=== PATIENT | female | born 1980 ===

== ENCOUNTER 2022-06-12 05:37 | Inpatient (IN) ==
[2022-06-07 13:57] LABS: Basophils % 0.2 % (0.0-0.8); Eosinophils # 0.1 10*3/uL (0.0-0.87); Eosinophils % 0.7 % (0.00-10.9); Hematocrit 36.4 VOL% (35.7-47.0); Hemoglobin 11.3 GM/DL (12.0-16.0); Immature Granulocytes % 0.4 %; Immature Granulocytes Absolute 0.03 #; Lymphocytes # 1.8 10*3/uL (1.4-4.0); Lymphocytes % 22.2 % (21.3-54.2); Mean Platelet Volume 11.3 FL (9.6-12.0); Monocytes # 0.4 10*3/uL (0.11-0.8); Monocytes % 4.8 % (1.7-12.7); Neutrophils % 71.7 % (38.7-73.9); Platelet Count 315 T/CUMM (130-400); Red Blood Count 4.09 MC/CUMM (3.8-5.5); Red Cell Distribution Width 13.3 % (9.3-17.3); White Blood Count 8.3 T/CUMM (4-12)
[2022-06-07 14:00] LABS: Mucus,Urine Occasional /LPF (Occasional); Protein,Urine Negative (Negative); RBC,Urine 1 /HPF (0-4); Squamous Epithelial Cell,Urine Occasional /HPF (0-10); Urine Appearance Clear (Clear); Urine Color Yellow (Yellow); Urine Specific Gravity 1.025 (1.001-1.035)
[2022-06-07 14:01] LABS: Bilirubin,Urine 0.2 mg/dL (Negative); Blood, Urine Negative (Negative); Glucose,Urine (UA) Negative (Negative); Ketones,Urine Negative (Negative); Nitrite,Urine Negative (Negative); Urine Urobilinogen 0.2 eU/dL (<2.0)
[2022-06-07 14:19] LABS: Alanine Aminotransferase 24 U/L (13-56); Albumin 3.3 G/DL (3.4-5.0); Alkaline Phosphatase 92 U/L (45-117); Aspartate Amino Transferase 12 U/L (0-37); Bilirubin,Total < 0.39 MG/DL (0.20-1.00); Blood Urea Nitrogen 9 MG/DL (7-18); Calcium 8.7 MG/DL (8.5-10.1); Carbon Dioxide 25 MMOL/L (21-32); Chloride 110 MMOL/L (98-107); Cholesterol 90 MG/DL (50-200); Glucose 125 MG/DL (74-106); HDL Cholesterol 41 MG/DL (40-60); Potassium 4.1 MMOL/L (3.5-5.1); Sodium 143 MMOL/L (136-145); Triglycerides 95 MG/DL (2-150)
[2022-06-07 14:48] LABS: HIV Antigen/Antibody Result Nonreactive (Nonreactive)
[2022-06-12] MEDS ORDERED: AMPICILLIN/SULBACTAM 3,000 MG in SODIUM CHLORIDE 0.9% 100 ML IV ONE (06:00)
[2022-06-12] MEDS: LACTATED RINGERS 1,000 ML IV SCH ×2 (06:13→10:16)
[2022-06-12] MEDS ORDERED: MIDAZOLAM 2 MG/2 ML VIAL ONE (06:46)
[2022-06-12] MEDS ORDERED: fentaNYL 100 MCG/2 ML VIAL ONE ×2 (06:47→08:25)
[2022-06-12] MEDS ORDERED: DIAZEPAM 5 MG TABLET PO ONE (06:49)
[2022-06-12] MEDS ORDERED: GABAPENTIN 400 MG CAPSULE PO ONE (06:49)
[2022-06-12] MEDS ORDERED: FAMOTIDINE 20 MG TABLET PO ONE (06:49)
[2022-06-12] MEDS ORDERED: ACETAMINOPHEN 500 MG TABLET PO ONE (06:49)
[2022-06-12] MEDS ORDERED: propofoL 200 MG/20 ML VIAL IV ONE (08:15)
[2022-06-12] MEDS ORDERED: ONDANSETRON 4 MG/2 ML VIAL ONE (08:15)
[2022-06-12] MEDS ORDERED: ROCURONIUM 50 MG/5 ML VIAL IV ONE (08:15)
[2022-06-12] MEDS ORDERED: LIDOCAINE 2% 5 ML VIAL ONE (08:15)
[2022-06-12] MEDS ORDERED: GLYCOPYRROLATE 0.4 MG/2 ML VIAL ONE (09:22)
[2022-06-12] MEDS ORDERED: DESFLURANE 1 UNIT/15 MINUTE INH ONE (09:22)
[2022-06-12] MEDS ORDERED: NEOSTIGMINE 10 MG/10 ML VIAL ONE (09:23)
[2022-06-12] MEDS ORDERED: ONDANSETRON 4 MG/2 ML VIAL IV PRN ×2 (09:51→11:03)
[2022-06-12] MEDS: HYDROmorphone 1 MG/1 ML SYRINGE IV PRN ×2 (10:00→10:13)
[2022-06-12] MEDS ORDERED: BENZOCAINE/MENTHOL LOZENGE 18/BOX PO PRN (11:03)
[2022-06-12] MEDS ORDERED: HYDROmorphone 1 MG/1 ML SYRINGE IV PRN (11:03)
[2022-06-12] MEDS ORDERED: ACETAMINOPHEN 325 MG TABLET PO PRN (11:03)
[2022-06-12] MEDS ORDERED: BISACODYL 10 MG SUPP RECTAL PRN (11:03)
[2022-06-12] MEDS ORDERED: MAGNESIUM HYDROXIDE SUSP 30 ML UDCUP PO PRN (11:03)
[2022-06-12] MEDS ORDERED: LACTATED RINGERS 1,000 ML IV SCH (11:03)
[2022-06-13 04:57] LABS: Basophils % 0.2 % (0.0-0.8); Eosinophils # 0.1 10*3/uL (0.0-0.87); Eosinophils % 0.5 % (0.00-10.9); Hematocrit 31.8 VOL% (35.7-47.0); Hemoglobin 9.9 GM/DL (12.0-16.0); Immature Granulocytes % 0.4 %; Immature Granulocytes Absolute 0.04 #; Lymphocytes # 2.1 10*3/uL (1.4-4.0); Lymphocytes % 22.3 % (21.3-54.2); Mean Corpuscular HGB Conc 31.1 GM/DL (32-36); Mean Corpuscular Volume 89.6 FL (87-102); Mean Platelet Volume 10.5 FL (9.6-12.0); Monocytes # 0.5 10*3/uL (0.11-0.8); Monocytes % 5.7 % (1.7-12.7); Neutrophils % 70.9 % (38.7-73.9); Platelet Count 256 T/CUMM (130-400); Red Blood Count 3.55 MC/CUMM (3.8-5.5); Red Cell Distribution Width 13.2 % (9.3-17.3); White Blood Count 9.2 T/CUMM (4-12)
[2022-06-13] MEDS: METOCLOPRAMIDE 10 MG TABLET PO SCH ×3 (06:45→21:16)
[2022-06-13] MEDS: DOCUSATE SODIUM 100 MG CAPSULE PO PRN ×2 (09:15→21:16)
[2022-06-13] MEDS: IBUPROFEN 800 MG TABLET PO PRN (16:16)
[2022-06-14] MEDS: METOCLOPRAMIDE 10 MG TABLET PO SCH (06:08)
[2022-06-14] MEDS: IBUPROFEN 800 MG TABLET PO PRN (09:39)
[2022-06-14 12:54] VITALS: BP 112/59
== END 2022-06-14 13:35 | disposition home or self-care (01) | DRG 742 ==
LOC: N.OR 05:37 → N.SDSINP 05:39 → INTOOBSV 09:29 → N.SDSINP 09:29 → N.OB 10:44
PROVIDERS: ADMIT Obstetrics & Gynecology; ATTEND Obstetrics & Gynecology